=== PATIENT | male | born 1975 | race Two or more races ===

== ENCOUNTER → 2017-07-14 | Outpatient (CLI) | payer OTHER ==
--- NOTE | 2017-07-14 16:21 | RAD ---
CT of the abdomen and pelvis without contrast, 07/14/2017: History: Abdominal pain, rectal bleeding Multidetector CT imaging was performed without contrast. The unopacified liver shows no abnormality. The gallbladder is unremarkable. The pancreas shows no abnormality. The spleen is of normal size. The unopacified kidneys show no abnormality. The adrenal glands are unremarkable. A couple of minimal aortoiliac calcific plaques are present without evidence of aneurysm. No abdominal or pelvic adenopathy is present. The urinary bladder is unremarkable. The prostate gland is near the upper limits of normal size in size with several calcifications noted. The bowel loops are not dilated. Mild mural thickening in the sigmoid and splenic flexure regions is probably due to lack of colonic distention in those regions. No significant paracolic inflammation is evident. The appendix shows no abnormality. There is a suggestion of a small hiatal hernia. No free air or free fluid is evident in the abdomen or pelvis. Incidental note is made of bilateral spondylolysis at L5, with no evidence of spondylolisthesis. IMPRESSION: No acute abdominal or pelvic abnormality is detected. PQRS Compliance Statement: One or more of the following individualized dose reduction techniques were utilized for this examination: 1. Automated exposure control 2. Adjustment of the mA and/or kV according to patient size 3. Use of iterative reconstruction technique
== END | disposition home or self-care (01) ==
LOC: CT 15:39
PROVIDERS: ATTEND Radiology Diagnostic Radiology
DX: K62.5 Hemorrhage of anus and rectum (principal); M43.06 Spondylolysis, lumbar region
CPT/HCPCS: 74176